=== PATIENT | male | born 1960 | race Caucasian/White ===

== ENCOUNTER 2019-12-21 15:42 | Outpatient (CLI) | payer MEDICARE, SELFPAY ==
--- NOTE | 2019-12-24 18:05 | ONC FU_ITS ---
Dr. Ennis Patient Follow-Up Note Patient: Yuniel Warren Unit #: [id number]: 1960 Dicatated By: Eddie Ennis M.D.Date of Visit:Dec 21, 2019 Onc Med Follow-up/Prog Note Chief Complaint: Laryngeal cancer. 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 He had presented with progressive hoarseness and dyspnea. 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 He underwent a debulking surgery on 11/09/2010. He also had findings consistent with primary hyperparathyroidism with elevated calcium and increased parathyroid hormone. He was first seen by Dr. Chiang on 11/22/2010 and required emergent tracheostomy placement. He required monthly IV biphosphonates for the control of his hypercalcemia. The definitive concurrent chemoradiation with cisplatin 100 mg/m??? was initiated on 01/01/2011. He was able to receive only 2 cycles of chemotherapy. The third cycle was canceled due to progressive hypercalcemia, bronchitis and severe hypertension. His radiotherapy was eventually completed on 02/21/2011. His treatment was complicated with progressive hearing loss, tinnitus, and intermittent hand paresthesias. After completion of his treatment, he underwent a parathyroidectomy. Restaging PET/CT on showed no evidence of metastatic disease. Surveillance CT neck on showed marked continued improvement in tumor. The patient continued with routine laryngoscopy evaluation by Dr. Vincenzo. He continued to see an family mediator for hypothyroidism and osteoporosis. 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 He was diagnosed with TERESA, planned for chronic CPAP therapy. For his depression he has seen Dr. Johnson. Repeat CT of the neck on 04/05/2014 continued to be without evidence of progression of disease. A follow-up CT of the neck and chest on 04/11/2015 was stable, without new lesions. His medical illnesses include hypertension, hyperparathyroidism, hypothyroidism, COPD, and obstructive sleep apnea. He has a prior history of smoking and alcohol use. He quit smoking in August 2014. INTERIM HISTORY: CT scan of the neck performed 04/03/2016 showed stable post radiation appearance of the supraglottic and glottic airway. There was mild soft tissue thickening noted, which had remained stable over several years. There was no neck lymphadenopathy noted. CT scan of the chest also performed on 04/03/2016 showed no metastatic disease or nodules within the lungs. There was also no mediastinal or hilar adenopathy. Surveillance CT scans of the neck and chest on 04/08/2017 showed no evidence of disease recurrence or progression. Soft tissue abnormality in the supraglottic and glottic larynx appeared stable, and a noncalcified 4-5 mm right upper lobe pulmonary nodule also appeared unchanged. I had seen him for a follow-up visit on 04/10/2017. His TSH level that time was slightly elevated, but he otherwise appeared stable clinically with no evidence of recurrence of the laryngeal cancer. At that point I had increased his thyroid replacement, but he otherwise just continued on observation/expectant management. He is seen for a scheduled visit. He was recently started on antibiotic therapy with Augmentin for sinus infection. He complains that he has been tired in the he has been sleeping a lot. He otherwise has been feeling okay. He is able to do some light work. His ECOG score is 1. Since his last visit, which was in August 2018, he has had a weight loss in the range of 30 pounds, but he says that he does eat. He does not complain of having difficulty swallowing. He has just occasional cough. He does not complain of shortness of breath or chest pain. He occasionally has nausea. He has no other GI or complaints. He has no significant joint or bone pain. He has had headache with his recent sinus infection. He occasionally has dizziness. He has no focal neurologic symptoms. Medications: AmLODIPine Besylate 1 (5 mg) Tablet Oral daily, Calcium 2 Tablet Oral daily, Cholecalciferol 1 (24384 Units) Tablet Oral q 7 days, FLUoxetine HCl 1 (20 mg) Tablet Oral daily, Krill Oil Capsule Oral, Levothroid 1 (100 mcg) Tablet Oral daily, Multivitamins 1 Capsule Oral daily, Omeprazole 1 (20 mg) Capsule Delayed Release Oral, Proventil HFA Aerosol, solution Inhalation PRN, Spironolactone 0.5 (25 mg) Tablet Oral daily Allergies: No Known Allergies. Review of Systems: Constitutional - He has been more tired and resting more than usual. He is able to do some very light work around the house. His appetite is good but his weight is down 30 pounds from last August. No fever, night sweats, or hot flashes. ECOG score is 2, ENMT - He has been taking Augmentin for sinus infection. No mouth sores. No sore throat or difficulty swallowing. He has a tracheostomy, Hematologic/Lymphatic - No abnormal bruising or bleeding, Respiratory - No shortness of breath. He has a cough. No pleuritic pain or hemoptysis, Cardiovascular - No angina pain. No palpitations, Gastrointestinal - He occasionally has nausea. No heartburn or acid reflux. No diarrhea or constipation. No blood in the stool or black stools, Genitourinary (M) - No dysuria or hematuria. No urinary frequency. No urgency or incontinence, Musculoskeletal - No joint or bone pain, Integumentary - He has a skin rash in the facial area, Neurologic - He has had sinus headache. He occasionally has dizziness. No numbness or tingling. No other focal neurologic symptoms, Psychiatric - No anxiety or depression. No insomnia. Vital Signs: Performed on Dec 21, 2019 14:34 Height - 69.00 in Weight - 209 lbs (LOW) BSA - 2.10 sq.m BMI - 30.86 (HIGH) Temperature - 98.2 F (LOW) Pulse - 95 /min Respiration - 16 /min BP - 128/82 mm(hg) O2 Sat - 99 % Pain - 0 Physical Examination: Constitutional - He looks pretty good generally, Eyes - Sclerae nonicteric.Conjunctivae clear, ENMT - Mouth is dry. There are no lesions noted in the oral cavity, Neck - There is induration in the neck. There is no mass noted. The tracheostomy site appears unremarkable, Hematologic/Lymphatic - No cervical, clavicular, or axillary adenopathy noted, Respiratory - Lungs show slightly coarse breath sounds bilaterally, Cardiovascular - Heart rhythm is regular. There is no murmur, gallop, or rub noted, Abdomen - Soft. Liver and spleen are not enlarged. There is no abdominal mass or ascites noted and there is no inguinal adenopathy, Extremities - No edema, Integumentary - There is patchy erythema in the facial area, mainly malar and perioral distribution. It appears consistent with seborrhea, Neurologic - No focal neurologic deficits noted. Lab/Imaging: Test performed on Oct 18, 2019 10:54 T4, Free 1.17 ng/dL TSH 3.37 uU/mL Glucose 406 mg/dL BUN 15 mg/dL Creatinine 0.74 mg/dL Cr Clearance (Est) 166.85 mL/min BUN/Creatinine Ratio 133 Absolute Value Sodium 133 mmol/L Potassium 4.3 mmol/L Chloride 98 mmol/L CO2 23 mmol/L Calcium 9.9 mg/dL Protein, Total 7.0 g/dL Albumin 4.1 g/dL Bilirubin, Total 0.3 mg/dL Alkaline Phosphatase 88 IU/L AST (SGOT) 18 IU/L ALT (SGPT) 17 IU/L WBC 6.0 10^9/L RBC 5.09 10^12/L HGB 15.0 g/dL HCT 43.5 % MCV 85.5 fl MCH 29.5 pg MCHC 34.5 g/dL RDW 13.0 % Platelet Count 307 10^9/L MPV 9.7 fL Neutrophils (Gran) 3.65 10^9/L Lymphocytes 1.54 10^9/L Monocytes 0.47 10^9/L Eosinophils 0.21 10^9/L Basophils 0.05 10^9/L Manual Lymphocytes 26 % Manual Monocytes 8 % Manual Eosinophils 4 % Manual Basophils 1 % Impression: 1. Patient with moderate to poorly differentiated invasive squamous cell carcinoma of the supraglottic larynx, by clinical evaluation stage III (T3, N0, M0). 2. He underwent debulking surgery on 11/09/2010. 3. During subsequent follow-up he required emergent tracheostomy and treatment for hypercalcemia. 4. He then underwent definitive chemoradiation. Radiation was completed on 02/21/2011 to a total dose of 7000 cGy. He received only 2 of 3 planned cycles of cisplatin. 5. He has since then been followed on observation/expectant management. He appeared to have complete response by follow-up PET/CT on 05/10/2011. His other medical illnesses include: 6. Hypertension. 7. Hyperparathyroidism. 8. Hypothyroidism. 9. COPD. 10. Obstructive sleep apnea. During follow-up he has continued to have somewhat marginal performance status, and since his visit in August 2018 he has had a significant weight loss, in the range of 30 pounds. There has been no evidence, though, of recurrence/progression of the laryngeal cancer. Plan: He remains on observation/expectant management. I will see him again in one year. Signed By: Eddie Ennis M.D. <<Signature on File>>
== END 2019-12-21 15:43 | disposition home or self-care (01) ==
LOC: ONCMED 15:42
PROVIDERS: Visit Provider Internal Medicine Medical Oncology
DX: C32.1 Malignant neoplasm of supraglottis (principal); R53.81 Other malaise; E21.3 Hyperparathyroidism, unspecified; E05.90 Thyrotoxicosis, unspecified without thyrotoxic crisis or storm; J44.9 Chronic obstructive pulmonary disease, unspecified; I10 Essential (primary) hypertension; G47.33 Obstructive sleep apnea (adult) (pediatric); E03.9 Hypothyroidism, unspecified; Z92.3 Personal history of irradiation; Z92.21 Personal history of antineoplastic chemotherapy; Z79.899 Other long term (current) drug therapy
CPT/HCPCS: G0463

== ENCOUNTER 2021-05-31 13:02 | Outpatient (CLI) | payer MEDICARE, SELFPAY ==
[2021-05-31 13:46] LABS: Basophils # 0.1 10^3/uL (0.0-0.1); Eosinophils # 0.2 10^3/uL (0.0-0.8); Eosinophils % 3.2 %; Hematocrit 45.2 % (42.0-52.0); Hemoglobin 14.7 g/dL (11.7-16.6); Lymphocytes # 1.1 10^3/uL (0.8-4.8); Lymphocytes % 15.9 %; Mean Corpuscular HGB Conc 32.5 g/dL (30.0-36.0); Mean Corpuscular Hemoglobin 29.2 pg (28.0-34.0); Mean Corpuscular Volume 89.9 fl (80-94); Mean Platelet Volume 8.9 fL (7.4-10.4); Monocytes # 0.5 10^3/uL (0.2-0.9); Monocytes % 6.6 %; Neutrophils # 4.99 10^3/uL (1.8-7.7); Neutrophils % 72.6 %; Nucleated Red Blood Cells % 0 %; Platelet Count 339 10^3/cmm (130-400); Red Blood Count 5.03 10^6/uL (4.1-5.3); Red Cell Distribution Width 13.4 % (12.1-15.1); White Blood Count 6.9 10^3/uL (4.0-10.0)
[2021-05-31 14:08] LABS: Alanine Aminotransferase 13 U/L (0-41); Albumin Level 4.8 g/dL (3.5-5.2); Alkaline Phosphatase 92 IU/L (40-130); Aspartate Amino Transferase 17 U/L (0-40); Blood Urea Nitrogen 21 mg/dL (6-20); Calcium 10.1 mg/dL (8.5-10.5); Carbon Dioxide 26 mmol/L (22-29); Chloride 101 mmol/L (98-107); Free T4 Free Thyroxine 0.93 ng/dL (0.82-1.77); Globulin 2.6 g/dL (1.3-4.6); Glomerular Filtration Rate 98.9 mL/min (90-130); Glucose 198 mg/dL (65-115); Osmolality Calculated 293 mOsm/kg (285-295); Sodium 137 mmol/L (136-145); Total Bilirubin 0.4 mg/dL (0.15-1.2); Total Protein 7.4 g/dL (6.6-8.7)
--- NOTE | 2021-05-31 17:47 | ONC FU_ITS ---
Dr. Ennis Patient Follow-Up Note Patient: Yuniel Warren Unit #: [id number]: 1960 Dicatated By: Eddie Ennis M.D.Date of Visit:May 31, 2021 Onc Med Follow-up/Prog Note Chief Complaint: Laryngeal cancer. 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 He had presented with progressive hoarseness and dyspnea. 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 He underwent a debulking surgery on 11/09/2010. He also had findings consistent with primary hyperparathyroidism with elevated calcium and increased parathyroid hormone. He was first seen by Dr. Chiang on 11/22/2010 and he required emergent tracheostomy placement. He required monthly IV biphosphonates for the control of his hypercalcemia. Definitive concurrent chemoradiation with cisplatin 100 mg/m??? was initiated on 01/01/2011. He was able to receive only 2 cycles of chemotherapy. The 3rd cycle was canceled due to progressive hypercalcemia, bronchitis and severe hypertension. His radiotherapy was eventually completed on 02/21/2011. His treatment was complicated with progressive hearing loss, tinnitus, and intermittent hand paresthesias. After completion of his treatment, he underwent a parathyroidectomy. Restaging PET/CT on showed no evidence of metastatic disease. Surveillance CT neck on showed marked continued improvement in tumor. The patient continued with routine laryngoscopy evaluation by Dr. Loya. He continued to see an electrical manufacturing technician for hypothyroidism and osteoporosis. Repeat CT of the neck on 04/05/2014 continued to be without evidence of progression of disease. A follow-up CT of the neck and chest on 04/11/2015 was stable, without new lesions. CT scan of the neck performed 04/03/2016 showed stable post radiation appearance of the supraglottic and glottic airway. There was mild soft tissue thickening noted, which had remained stable over several years. There was no neck lymphadenopathy noted. CT scan of the chest also performed on 04/03/2016 showed no metastatic disease or nodules within the lungs. There was also no mediastinal or hilar adenopathy. Surveillance CT scans of the neck and chest on 04/08/2017 showed no evidence of disease recurrence or progression. Soft tissue abnormality in the supraglottic and glottic larynx appeared stable, and a noncalcified 4-5 mm right upper lobe pulmonary nodule also appeared unchanged. I had seen him for a follow-up visit on 04/10/2017. His TSH level that time was slightly elevated, but he otherwise appeared stable clinically with no evidence of recurrence of the laryngeal cancer. At that point I had increased his thyroid replacement, but he otherwise just continued on observation/expectant management. His medical illnesses include hypertension, hyperparathyroidism, hypothyroidism, COPD, and obstructive sleep apnea. He has a prior history of smoking and alcohol use. He quit smoking in August 2014. INTERIM HISTORY: He was seen for a scheduled follow-up visit on 12/21/2019. He had experience of significant weight loss during the preceding year. However, by clinical evaluation there is no evidence of recurrence of the laryngeal cancer. He continued expectant management. He is seen for a follow-up visit. He has been feeling pretty good generally. He has been out doing some gardening and other light work. He also says that he rests and sleeps a lot. His ECOG score is 1. He had recently developed pain in his right rib cage associated with a minor injury, but he did feel his rib pop. It has been getting better. He has good appetite, and by our scale his weight is up 14 pounds since his last visit. He does not have fever or night sweats. He occasionally has choking when he is eating, but for the most part his swallowing is pretty good. He does not complain of cough. He does have some shortness of breath with activity. He has not been having chest pain. He has no GI/ complaints other than occasional nausea. He has no other joint or bone pain. He does not complain of headache. He occasionally has dizzy spells. He has no numbness/paresthesia or other focal neurologic symptoms. Subsequent to his last visit here he had stopped his thyroid supplement. Medications: AmLODIPine Besylate 1 (5 mg) Tablet Oral daily, Calcium 2 Tablet Oral daily, Cholecalciferol 1 (26452 Units) Tablet Oral q 7 days, Krill Oil Capsule Oral, Levothyroxine Sodium 1 Tablet (of 100 mcg) Oral daily, Multivitamins 1 Capsule Oral daily, Omeprazole 1 (20 mg) Capsule Delayed Release Oral, Proventil HFA Aerosol, solution Inhalation PRN, Spiriva HandiHaler 1 Inhalation (of 18 mcg) Capsule Inhalation daily, Spironolactone 0.5 (25 mg) Tablet Oral daily Allergies: No Known Allergies. Vital Signs: Performed on May 31, 2021 14:21 Height - 69.00 in BP - 156/100 mm(hg) (HIGH) Performed on May 31, 2021 14:21 Height - 69.00 in BP - 159/122 mm(hg) (HIGH) Performed on May 31, 2021 14:20 Height - 69.00 in Weight - 223.4 lbs (HIGH) BSA - 2.17 sq.m BMI - 32.99 (HIGH) Temperature - 98.1 F (LOW) Pulse - 101 /min (HIGH) Respiration - 18 /min BP - 161/112 mm(hg) (HIGH) O2 Sat - 98 % Pain - 5 Fatigue - 6 Physical Examination: Constitutional - He looks pretty good generally, Eyes - Sclerae nonicteric.Conjunctivae clear, ENMT - Mouth is dry. There are no lesions noted in the oral cavity, Neck - There is only mild induration in the neck. There is no mass noted. The tracheostomy site appears unremarkable, Hematologic/Lymphatic - No cervical, clavicular, or axillary adenopathy noted, Respiratory - Lungs sound clear at this time, Cardiovascular - Heart rhythm is regular. There is no murmur, gallop, or rub noted, Abdomen - Soft. Liver and spleen are not enlarged. There is no abdominal mass or ascites noted and there is no inguinal adenopathy, Extremities - No edema, Integumentary - There is patchy erythema in the facial area, mainly malar and perioral distribution. It appears consistent with seborrhea, Neurologic - No focal neurologic deficits noted. Lab/Imaging: Test performed on May 31, 2021 13:21 Sodium 137 mmol/L T4, Free 0.93 ng/dL TSH 6.60 uIU/mL Potassium 4.0 mmol/L Chloride 101 mmol/L CO2 26 mmol/L Anion Gap 14.0 BUN 21 mg/dL Creatinine 0.8 mg/dL Cr Clearance (Est) 142.50 mL/min eGFR 98.9 mL/min Glucose 198 mg/dL Osmolality - Calculated 293 mOsm/kg Calcium 10.1 mg/dL Protein, Total 7.4 g/dL Albumin 4.8 g/dL Globulin 2.6 g/dL Bilirubin, Total 0.4 mg/dL ALT (SGPT) 13 U/L AST (SGOT) 17 U/L Alkaline Phosphatase 92 IU/L WBC 6.9 10 3/uL RBC 5.03 10 6/uL HGB 14.7 g/dL HCT 45.2 % MCV 89.9 fl MCH 29.2 pg MCHC 32.5 g/dL RDW 13.4 % Platelet Count 339 10 3/cmm MPV 8.9 fL Neutrophils 4.99 10 3/uL Lymphocytes 1.1 10 3/uL Monocytes 0.5 10 3/uL Eosinophils 0.2 10 3/uL Basophils 0.1 10 3/uL Neutrophil % 72.6 % Lymphocyte % 15.9 % Monocyte % 6.6 % Eosinophil % 3.2 % Basophils % 1.0 % NRBC % 0 % Problem List: 1. Moderate to poorly differentiated invasive squamous cell carcinoma of the supraglottic larynx, by clinical evaluation stage III (T3, N0, M0). 2. Hypertension. 3. Hyperparathyroidism. 4. Hypothyroidism. 5. COPD. 6. Obstructive sleep apnea. Problems Addressed with this Encounter and Plan: Patient with moderate to poorly differentiated invasive squamous cell carcinoma of the supraglottic larynx, by clinical evaluation stage III (T3, N0, M0). He underwent debulking surgery on 11/09/2010. During subsequent follow-up he required emergent tracheostomy and treatment for hypercalcemia. On 01/01/2011 he began definitive concurrent utilizing a standard high-dose cisplatin regimen. Radiation was completed on 02/21/2011 to a total dose of 7000 cGy. He received only 2 of 3 planned cycles of cisplatin. He appeared to have complete response by follow-up PET/CT on 05/10/2011. He was then followed on observation/expectant management. During follow-up he continued to have somewhat marginal performance status, but as of April 2017 there was no evidence of recurrence of the laryngeal cancer by clinical evaluation or surveillance CT. As of his follow-up visit in December 2019, he had experienced a 30 pound weight loss. Since then he has shown some improvement clinically. By our scale his weight is back up 14 pounds. In the absence of any evidence of recurrence of the laryngeal cancer, he will continue on expectant management. As he is now more than 10 years out from completion of radiation, he will continue regular follow-up with his primary care provider, Joo Fitzpatrick. He also continues yearly ENT follow-up with Dr. Loya. I will see him again only as needed. Signed By: Eddie Ennis M.D. <<Signature on File>>
== END 2021-05-31 13:03 | disposition home or self-care (01) ==
LOC: ONCMED 13:09
PROVIDERS: Visit Provider Internal Medicine Medical Oncology
DX: Z08 Encounter for follow-up examination after completed treatment for malignant neoplasm (principal); Z85.21 Personal history of malignant neoplasm of larynx; I10 Essential (primary) hypertension; E21.3 Hyperparathyroidism, unspecified; E03.9 Hypothyroidism, unspecified; J44.9 Chronic obstructive pulmonary disease, unspecified; G47.33 Obstructive sleep apnea (adult) (pediatric); Z79.899 Other long term (current) drug therapy; Z92.21 Personal history of antineoplastic chemotherapy; Z92.3 Personal history of irradiation
CPT/HCPCS: 36415; 80053; 84439; 84443; 85025; 99214

== ENCOUNTER 2022-08-30 13:59 | Inpatient (IN) | payer MEDICARE, MEDICAID, SELFPAY ==
[2022-08-30] VITALS (32 sets, daily range): BP systolic 81–127; BP diastolic 50–89; PULSE 94–121; RESP 16–42; TEMP 37–37.1; O2SAT 89–97; BMI 33.0
--- NOTE | 2022-08-30 14:00 | ECG_ITS ---
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 Measurements Intervals [place] Rate: 107 P: 42 RI: 147 QRS: 5 QRSD: 119 T: -24 QT: 357 QTc: 477 Interpretive Statements SINUS TACHYCARDIA WITH OCCASIONAL SUPRAVENTRICULAR PREMATURE COMPLEXES LOW QRS VOLTAGE IN PRECORDIAL LEADS [QRS DEFLECTION < 1.0 mV IN CHEST LEADS] ST ELEVATION, CONSIDER ANTERIOR INJURY [MARKED ST ELEVATION W/O NORMALLY INFLECTED T-WAVE IN V2-V5] ACUTE CA INTERPRETATION BASED ON A DEFAULT AGE OF 40 YEARS No previous ECG available for comparison Electronically Signed On 09-03-2022 20:27:19 CDT by Kel Torres M.D. [email or web address]
--- NOTE | 2022-08-30 14:06 | XRR_ITS ---
PROCEDURE INFORMATION: Exam: XR Chest Exam date and time: 08/30/2022 3:05 PM Age: 61 years old Clinical indication: Chest wall pain; Additional info: Chest pain TECHNIQUE: Imaging protocol: Radiologic exam of the chest. Views: 1 view. COMPARISON: CT chest w con* [id number] 04/08/2017 10:48 AM FINDINGS: Tubes, catheters and devices: There is a tracheostomy tube in place with the tip at the level of the sternoclavicular joints. Lungs: Lungs are clear bilaterally. Pleural spaces: No pleural effusion. No pneumothorax. Heart/Mediastinum: Stable mild enlargement of the cardiac silhouette. Mediastinal contours are unremarkable. Vasculature: Stable vascular calcifications in the aorta. Bones/joints: Unremarkable for age. XR/XR chest 1V portable [id number] IMPRESSION: 1. No acute cardiopulmonary process. 2. There is a tracheostomy tube in place with the tip at the level of the sternoclavicular joints. 3. Incidental/nonacute findings are listed in the report.
[2022-08-30] MEDS: heparin 5,000 unit/mL INJ 1 mL 4000 UNIT IVP (14:08)
[2022-08-30] MEDS: clopidogrel 300 mg Tablet 600 MG PO (14:09)
--- NOTE | 2022-08-30 14:09 | XACV_ITS ---
Exam Room: ED.ROOM10 Ht: 178 cm Wt: 104 kg BSA: 2.30 m2 Gender: Male : 1960 Any Known Allergies: No known allergies Exam Priority: Routine Procedure(s): Procedure Description: Diagnostic procedure Procedure Description: PCI procedure Procedure Description: Left Heart Catheterization Procedure Description: PTCA Procedure Description: Miscellaneous Procedure Description: ACT Procedure Description: Coronary Angiography Diagnostic Cath Status: Emergency Diagnostic Findings * INDICATION: 71 year old man presented with 12-24 hours of indigestion and chest pain that has gotten better. However EKG is showing q waves with ST elevation in inferior leads. laborer activated for ST elevation AK. * Proximal Right Coronary Artery: total thrombotic occlusion, ALEJANDRO:0 flow. * Left Anterior Descending has mild luminal irregularities. * Left Main has no disease. * Circumflex has no disease. * Coronary angiography shows left dominance. PCI Status: Emergency PCI Indication: STEMI - Stable (<= 12 hrs Sx) Interventional Findings * Procedure Detail: We engaged RCA with JR4 guide catheter. IV heparin was administered to maintain anticoagulation. 0.014 run-through guidewire was used to cross the totally occluded vessel. With some difficulty we were able to cross it. Balloon angioplasty was performed with 2.5 x 12 mm semicompliant balloon.No flow was restored. We then performed diagnostic angiography of left system. This showed large left system. We then engaged RCA with AL 0.75 guide catheter. Occluded segement was crossed again with run-through wire. We performed several inflations of 2.5 x 12 mm semicompliant balloon. This restored flow and showed a high thrombus burden and a small sized vessel. At this time patient denied any chest pain. His labs came back and initial troponin was over 2400. Given small size of RCA,resolution of chest pain and late presentation of ST elevation AK confirmed with higher troponin level, we decided not to put stent in. Patient left the irrigation laborer in a stable condition. . * Proximal Right Coronary Artery: 100% stenosis treated with a AB TREK 2.50X12 RX BALLOON. 0% residual stenosis, ALEJANDRO: 3 flow. Conclusions 1. Total thrombotic occlusion of 2. small sized RCA 3. . This is culprit vessel for 4. ST elevation AK. 5. Balloon angioplasty was performed. However given small size of vessel, resolution of symptoms and late presentation of STEMI 6. we decided to not use 7. stent it. . 8. Proximal Right Coronary Artery was treated with a Balloon. Recommendations * Transfer to Cardiac step down unit. * Dual antiplatelet therapy for atleast 1 year. * High intensity statin therapy. * Outpatient cardiology follow up in 2-4 weeks. * Will resume anticoagulation for 48 hours after hemostasis is achieved for access site. Interventional RX Recommendation: PCI w/o planned CABG Diagnostic RX Recommendation: PCI w/o planned CABG Anticoagulation: Heparin Pressures Phase:Rest AO : 73 / 66 ( 71 ) @ 3:32:00 PM 93 / 80 ( 87 ) @ 3:38:00 PM 98 / 85 ( 92 ) @ 3:40:00 PM 116 / 76 ( 93 ) @ 3:43:00 PM 115 / 76 ( 91 ) @ 3:43:00 PM 112 / 99 ( 107 ) @ 3:50:00 PM LV : 141 / -9 / 7 @ 3:42:00 PM 144 / -9 / 8 @ 3:43:00 PM Valves Phase:DefaultPhase AV : 0.0 @ 3:04:25 PM 0.0 @ 3:04:25 PM AV Mean Gradient: 0.0 @ 3:04:25 PM 0.0 @ 3:04:25 PM Clinical Evaluation EBL: 5mL-10mL Procedural Details Procedure Consent Obtained. Pre-Procedure Time Out. Identified patient by full name and date of as verbalized by the patient/guarantor. Does the consent match the physician's order: N/A Emergent. Accurate & Complete Informed Consent: N/A Emergent. Inpatient/Outpatient History & Physical on Chart: N/A Emergent. If H&P is completed, is and addenduem needed: N/A Emergent; If yes, is the addendum complete: N/A Emergent. Visualize and Verify Site with Patient/Guarantor: N/A. Relevant Radiology Images available: N/A Emergent. Pre-op teaching completed and patient verbalized understanding. The risks, benefits, and alternatives of sedation and/or procedure were discussed by physician. The patient agrees to continue. Procedure started. [facility] Clinical Fraility Score: 3: Managing Well. Global President Indications: ACS <= 24 hours. Chest Pain Symptom Assessment: Typical Angina Symptoms. Current Diagnosis : STEMI. Correct patient, site and procedure confirmed by cath team. Current diagnosis: STEMI. PERRLA. Strong, equal hand product sales representative bilaterally. Lungs clear x 5 lobes. IV Site on Arrival: 20 gauge in the left anticubital. IV Site on Arrival: 20 gauge in the left hand. IV Fluids: 0.9% NaCl at KVO. 0 mL infused prior to irrigation laborer. Pre Procedural Pulses: bilateral dorsalis pedis was 2+. Pre Procedural Pulses: right radial was 2+. Oxygen started at 2liters/min via nasal canula. right groin was prepped with chloroprep then draped in the usual sterile fashion. right radial was prepped with chloroprep then draped in the usual sterile fashion. Physician notified. Baseline sample Acquired. HR: 114 BPM. Physician arrived. Physician scrubbed in. Immediate Pre-Procedure Time Out. Correct Patient: Yes; Correct Procedure: Yes; Correct Site: Yes; Correct Patient Position: Yes; Correct Supplies: Yes; Dried Flammable Prep: Yes; Blood Products Available: N/A;. Lidocaine 1% infiltrated to the right radial. Arterial access obtained. 6 austrian JR 4 guide catheter was inserted over the wire. Runthrough guidewire was advanced through the guide catheter to lesion in the prox RCA. Delay in PCI related to difficult anatomy. Multiple views taken of right coronary artery. Runthrough guidewire was advanced through the guide catheter to lesion in the prox RCA. Inflation number : 1 A AB TREK 2.50X12 RX BALLOON was prepped and advanced across the Prox RCA , then inflated to 4 SANJEEV for 0:11 seconds. AP pads applied to patient chest. Balloon inserted to lesion in the prox RCA. Balloon and wire out. Guide catheter out. A 5 austrian TIG catheter in over wire. Multiple views taken of left coronary artery. Florence catheter advanced across the ventricle. EDP Sample taken: LV 141/-10,7; HR: 105 BPM; SpO2: 97%. Pullback taken: LV 144/-10,8; AO 116/76(93); Mean: 0mmHg, Peak to Peak: 0mmHg, SEP: 18sec/min; HR: 113 BPM; SpO2: 96%. Catheter removed over the exchange wire. 6 austrian AL 0.75 guide catheter was inserted over the wire. Runthrough guidewire was advanced through the guide catheter to lesion in the prox RCA. Inflation number: 2 The AB TREK 2.50X12 RX BALLOON was reinflated across the Prox RCA, to 6 SANJEEV for 0:12 seconds. Balloon inserted to lesion in the prox RCA. Inflation number: 3 The AB TREK 2.50X12 RX BALLOON was reinflated across the Prox RCA, to 8 SANJEEV for 0:12 seconds. Inflation number: 4 The AB TREK 2.50X12 RX BALLOON was reinflated across the Prox RCA, to 8 SANJEEV for 0:07 seconds. Results checked. Inflation number: 5 The AB TREK 2.50X12 RX BALLOON was reinflated across the Prox RCA, to 10 SANJEEV for 0:12 seconds. Inflation number: 6 The AB TREK 2.50X12 RX BALLOON was reinflated across the Prox RCA, to 10 SANJEEV for 0:14 seconds. Results checked. Balloon and wire out. Guide catheter out. A TR Band was successful obtaining hemostatsis at the Right Radial artery insertion site. Post Procedure: Pulses reassessed and unchanged. PERRLA. Strong, equal hand product sales representative bilaterally. No VTE prophylaxis required. Medication's Wasted: Heparin = 1000 u. Medication's Wasted: Nitro = 49.8 mg. Medication's Wasted: Other = Versed 1 mg. Medication's Wasted: Other = Fentanyl 50 mcg. Medication's Wasted: Lidocaine 1% = 2 mL. Post-op diagnosis: Totally occluded non dominant RCA post balloon dilation. Complications: none. Estimated blood loss: 5mL-10mL. Responsiveness - Normal response to verbal stimuli; alert and oriented, PERRLA. Airway - Unaffected, no intervention required; spontaneous ventilation. Circulation: W/N/L, pulses unchanged. Nausea/Vomiting: No. Total IV fluids: 47 mL. Procedure completed. ACT drawn. Results 259 seconds. Therapeutic limits - pre-heparin administration 90-150 seconds and monitoring heparin during a vascular procedure >250 seconds. Patient transferred by wheelchair to CPRU. PCI Indication: STEMI. Vital chart was stopped. Access Site Site: Right Radial artery Sheath Size: 6 Fr Hemostasis Method: TR Band Hemostasis Success: Successful Procedure Medications Start: 2:20 PM Stop: 2:20 PM Medication: Versed Amount: 1 mg Route: I.V. Start: 2:20 PM Stop: 2:20 PM Medication: Fentanyl Amount: 50 mcg Start: 2:24 PM Stop: 2:24 PM Medication: Nitrogylcerin Amount: 200 mcg Route: I.A. Start: 2:26 PM Stop: 2:26 PM Medication: Heparin Amount: 5000 units Route: I.V. I, the attending physician, have reviewed and verified all procedure medications. Yes, all medications given per verbal order History/Risk Factors Hypertension: No Dyslipidemia: No Peripheral Arterial Disease (PAD): No Myocardial Infarction (AK): No Obesity: No Renal Disease: No Prior Interventions PCI: No CABG: No Valve Surgery: No Report Signatures Finalized by Kel Torres MD on 08/31/2022 10:43 AM
--- NOTE | 2022-08-30 14:09 | W.ED.CHESTPA ---
HPI - Chest Pain General: Chief Complaint: Chest Pain Stated Complaint: stemi Time Seen by Provider: 08/30/22 14:05 History of Present Illness: Patient presents to the ER with complaints of chest pain,/STEMI alert from EMS. Patient stated he started having indigestion approximately 4 AM this morning and normally does not have indigestion. Patient tried eating and drinking and just did not go away. Patient eventually called EMS. When they got there he is having ST elevation on the EKG. Was brought here. EMS gave patient 324 mg aspirin and 1 nitro on route. Patient is totally pain-free at this moment. Patient has no cardiac history has never had a KY/stent/surgery of cardiac nature. Patient is not currently on any anticoagulation. 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 Stemi alert was called Recruitment Officer personnel and Dr. Choudhury evaluated patient in the room patient will be taken straight to the Recruitment Officer. Review of Systems General: Reports: 10 or more systems reviewed and unremarkable except in HPI and below Physical Exam Const: COMMON NORMALS: no acute distress, average body habitus, patient oriented x3, no limitations, healthy appearing, alert and well nourished HENMT: COMMON NORMALS: normocephalic, atraumatic, hearing grossly normal bilaterally, external ears normal, Normal external nose present and moist oral mucous membranes HEAD & SCALP: normocephalic and atraumatic NOSE: Normal external nose present EXTERNAL EAR: Yes external ears normal OTHER: Tracheostomy in place Eye: COMMON NORMALS: Equal, round and reactive pupils present, EOMs intact bilaterally, conjunctivae normal and no scleral icterus CONJUNCTIVA: Yes conjunctivae normal PUPIL: Yes Equal, round and reactive pupils present Neck/C-Spine: COMMON NORMALS: no JVD Chest: COMMONS NORMALS: normal inspection of the chest and normal palpation of entire chest wall Resp: COMMON NORMALS: normal respiratory effort, No retractions, No use of accessory muscles and clear to auscultation bilaterally AUSCULTATION: clear to auscultation bilaterally Cardio: COMMON NORMALS: no JVD, regular rate, regular rhythm, S1 normal heart sound present, S2 normal heart sound present, No gallops present (Cardio), No clicks present (Cardio), No murmurs present (Cardio) and No rub (Cardio) RATE: regular rate RHYTHM: regular rhythm HEART SOUNDS: S1 normal heart sound present and S2 normal heart sound present GI: COMMON NORMALS: Normal to inspection, nondistended, normoactive bowel sounds present, Soft to palpation, non-tender, No hepatosplenomegaly present and no masses PALPATION: Yes Soft to palpation and Yes No hepatosplenomegaly present : COMMON NORMALS: Yes no CVA tenderness BLADDER/KIDNEY EXAM: Yes no CVA tenderness Back/Pelvis: COMMON NORMALS: no CVA tenderness Extremity: NARRATIVE EXTREMITY EXAM: Normal negative edema Neuro: COMMON NORMALS: patient oriented x3 SENSORIUM/ORIENTATION: Yes alert MDM - Chest Pain Medical Decision Making Patient arrived via EMS for STEMI alert. Twelve-lead EKG did show STEMI with ST elevation in V2 through 5, with posterior extension. And 2 3 and aVF. Patient was given 600 mg Plavix oral and 4000 units of heparin IV. Dr. Choudhury took patient to the Recruitment Officer. EKG Data EKG 1: I personally reviewed and interpreted this EKG as follows: EKG interpretation date: 08/30/22 EKG interpretation time: 14:02 Prior EKG tracings: not available for review Interpretation: EKG showed ventricular rate 107 beats a minute, UT interval 147, QRS duration 119, QTc of 420, sinus tach with occasional PVC, inferior KY probably recent, ST elevation consider anterior KY, acute KY Critical Care Time Critical Care Time: Critical Care Time: Yes Total Critical Care Time: 20 Attestation: The high probability of a clinically significant, sudden or life threatening deterioration of the patient's [cardio vascular] system(s) required my full and direct attention, intervention and personal management. The critical care time is as shown. This time is in addition to time spent performing any reported procedures but includes the following: [x] Data and vital sign review and interpretation [x] Patient assessment, examination and intervention [x] Documentation [x] Medication orders and management Discharge Plan Discharge Clinical Impression: ST elevation (STEMI) myocardial infarction Condition: Stable Prescriptions: No Action levothyroxine 100 mcg tablet 100 mcg PO DAILY Qty: 90 3RF Coding Level of Care Code ED Justice Court Deputy Clerk for Shani Layne
--- NOTE | 2022-08-30 14:15 | P.HP_ITS ---
Providers/Chief Complaint Chief Complaint: stemi History of Present Illness Yuniel Warren is a 61 year old male with past medical history of laryngeal cancer and no prior significant disease was CAD was brought to hospital with indigestion and chest pain on and off since 4 AM. He called EMS as chest pain was not resolving. EMS similar EKG showed ST elevation in inferior leads. Cardiac Leak Gang Supervisor was emergently activated and patient brought to the Leak Gang Supervisor Review of Systems General: Reports: 10 or more systems reviewed and unremarkable except in HPI and below Narrative: CONSTITUTIONAL: No fever chills weight loss or gain or night sweats. [] HEENT: Normocephalic, atraumatic.[] RESPIRATORY: No cough, sputum, hemoptysis or wheezing.[] CARDIOVASCULAR: Has chest pain GI: no nausea vomiting diarrhea. [] COMPUTER FORENSIC EXAMINER: No numbness, tingling, weakness or loss of function in any part of the body. [] MUSCULOSKELETAL: No knee or joint pain or rashes. [] Medications/Allergies Home Medications Medication Instructions Recorded Confirmed Last Taken Type levothyroxine 100 mcg tablet 100 mcg PO DAILY #90 tabs 07/16/21 Unknown Rx Allergies Allergy/AdvReac Type Severity Reaction Status Date / Time No Known Allergies Allergy Verified 07/16/21 16:18 Vitals/I&O/Wt Weight last 48 hrs Weight 230 lb Physical Exam Narrative: GENERAL: Patient is alert, awake and oriented x3. [] NECK: No jugular vein distension. [] HEENT: No cyanosis. No icterus. No pallor. [] HEART: Regular S1 and S2. No murmur, rub or gallop. [] LUNGS: Clear to auscultate bilaterally. [] CENTRAL NERVOUS SYSTEM: Grossly nonfocal. [] EXTREMITIES: Lower extremities with no edema] A&P Assessment and plan (1) ST elevation (STEMI) myocardial infarction: Qualifiers: Involved coronary artery: unspecified coronary artery Qualified Code(s): I21.3 - ST elevation (STEMI) myocardial infarction of unspecified site Plan Patient has presented with acute ST elevation NV and brought emergently to cardiac Leak Gang Supervisor. We will perform coronary angiogram with possible PCI. Aspirin, Plavix and heparin bolus given. We will order echocardiogram. Transfer to cardiac stepdown unit post procedure. Attestations Medical Necessity Statement*: Care expected to cross 2 midnights. Patient has preseted with acute ST elevation NV and emerently brought to lab support service tech for angiogram Coding Level of Care Code Acute Code for Floydg Xi Diagnoses ST elevation (STEMI) myocardial infarction I21.3 Involved coronary artery: unspecified coronary artery
[2022-08-30 14:17] LABS: Glucose Point of Care 555 mg/dL (70-110)
[2022-08-30 14:39] LABS: Basophils # 0.1 10^3/uL (0.0-0.1); Basophils % 0.5 %; Eosinophils % 0.3 %; Hematocrit 47.1 % (42.0-52.0); Hemoglobin 15.4 g/dL (11.7-16.6); Lymphocytes # 1.2 10^3/uL (0.8-4.8); Lymphocytes % 8.6 %; Mean Corpuscular HGB Conc 32.7 g/dL (30.0-36.0); Mean Corpuscular Hemoglobin 28.8 pg (28.0-34.0); Mean Platelet Volume 9.9 fL (7.4-10.4); Monocytes % 7.7 %; Neutrophils # 10.98 10^3/uL (1.8-7.7); Neutrophils % 82.4 %; Nucleated Red Blood Cells % 0 %; Platelet Count 276 10^3/cmm (130-400); Red Blood Count 5.35 10^6/uL (4.1-5.3); Red Cell Distribution Width 13.1 % (12.1-15.1); White Blood Count 13.3 10^3/uL (4.0-10.0)
[2022-08-30 14:44] LABS: INR 0.94 (0.8-1.2)
[2022-08-30 14:52] LABS: Alanine Aminotransferase 38 U/L (0-41); Alkaline Phosphatase 117 U/L (40-130); Anion Gap 18.2 (5-19); Aspartate Amino Transferase 85 U/L (0-40); Blood Urea Nitrogen 16 mg/dL (8-23); Calcium 9.5 mg/dL (8.5-10.5); Carbon Dioxide 23 mmol/L (22-29); Chloride 90 mmol/L (98-107); Creatinine Clr Calc Pharmacy 95.0338; Globulin 3.3 g/dL (1.3-4.6); Glomerular Filtration Rate 76.2 mL/min (90-130); Glucose 484 mg/dL (65-115); Osmolality Calculated 287 mOsm/kg (285-295); Potassium 4.2 mmol/L (3.5-5.1); Sodium 127 mmol/L (136-145); Total Bilirubin 1.1 mg/dL (0.15-1.2); Total Protein 7.3 g/dL (6.6-8.7)
[2022-08-30 14:53] LABS: Troponin(5th) Baseline 2429 ng/L (0-15)
[2022-08-30 14:56] LABS: NT Pro B Type Natriuretic Pept 1533 pg/mL (0-125)
--- NOTE | 2022-08-30 15:10 | USCV_ITS ---
Yuniel Warren Age: 61 Gender: M : 1960 Exam Date: 08/30/2022 20:48 Ordering Phys: Kel Torres M.D ([email or web address]) Technologist: BLESSING Exam Location: [facility] [place] Indication: chest pain BP: / HR: 107 Rhythm: Sinus Technical Quality: Adequate MEASUREMENTS (Male / Female) Normal Values 2D ECHO LV Diastolic Diameter PLAX 5.0 cm 4.2 - 5.9 / 3.9 - 5.3 cm LV Systolic Diameter PLAX 4.6 cm IVS Diastolic Thickness 0.9 cm 0.6 - 1.0 / 0.6 - 0.9 cm IVS Systolic Thickness 0.9 cm LVPW Diastolic Thickness 1.0 cm 0.6 - 1.0 / 0.6 - 0.9 cm LVPW Systolic Thickness 1.0 cm LVOT Diameter 2.6 cm LV Ejection Fraction 2D Teich 17.5 % LV Ejection Fraction MOD 2C 57.9 % LV Ejection Fraction 2C AL 56.4 % LA Diameter 3.0 cm M-MODE Aortic Annulus Diameter 3.3 cm LA Ao Ratio MM 1.0 MV E Point Septal Separation 0.7 cm DOPPLER AV Peak Velocity 107.0 cm/s LVOT Peak Velocity 80.0 cm/s AV Area Cont Eq vti 3.5 cm squared AV Area Cont Eq pk 3.9 cm squared MV Area PHT 4.5 cm squared Mitral E to A Ratio 0.9 MV E' Velocity 33.5 cm/s Mitral E to MV E' Ratio 12.0 Mitral E to LV E' Lateral Ratio 11.3 Mitral E to LV E' Septal Ratio 13.0 TR Peak Velocity 136.0 cm/s TR Peak Gradient 7.4 mmHg TV Peak E Velocity 41.0 cm/s PV Peak Velocity 74.0 cm/s FINDINGS Left Ventricle Left ventricle is normal in size. LV systolic function is normal with EF of 55 to 60%. No regional wall motion abnormalities are seen. Grade 1 diastolic dysfunction Right Ventricle Normal in size and function Right Atrium Normal in size Left Atrium Normal in size Mitral Valve Moderate mitral annular calcification is seen Aortic Valve Aortic valve is thickened and calcified. No significant stenosis or regurgitation. Tricuspid Valve Mild tricuspid regurgitation. Insufficient TR jet to calculate RVSP Pulmonic Valve Not well visualized Pericardium Normal Aorta Aortic root is mildly dilated IVC Not well visualized CONCLUSIONS LV systolic function is normal with EF of 55 to 60%. Grade 1 diastolic dysfunction Mild tricuspid regurgitation. Compared to prior echocardiogram from 2013, no significant changes are seen Kel Torres MD (Electronically Signed) Final Date: 31 August 2022 13:19 S
[2022-08-30] MEDS: sodium chloride 0.9% 1,000 ML 100 ML IV (15:15)
--- NOTE | 2022-08-30 15:24 | PC.NURSE ---
received from cardiac dock or pier laborer s/p stemi alert ..at 1515.report received.pt is alert and awake and oriented x 4.asking for something to eat.denies pain.sr with st elevation present on monitor.rere [address]...on room air with good o2 sats noted.pt is able to speak.right wrist with tr band on and inflated.right hand is warm to touch and with brisk capillary refill.no hematoma noted.palpable radial pulse noted distal to tr band.pt instructed in activity restrictions s/p radial artery procedure...and instructed to notify staff for any bleeding,pain,sob,numbness,or for any concerns at all.pt verb understanding of instructions
--- NOTE | 2022-08-30 16:39 | ECG_ITS ---
[facility] Test Date: 2022-08-30 Pat Name: Yuniel Warren Department: Room: 104 Gender: Male Associate Web Developer: : 1960 Requested By: Ricardo Gonsalez Order Number: [id number] Luke MD: Kel Torres M.D. Measurements Intervals [place] Rate: 97 P: 53 NE: 156 QRS: -3 QRSD: 94 T: -24 QT: 357 QTc: 455 Interpretive Statements SINUS RHYTHM POSSIBLE LEFT ATRIAL ENLARGEMENT [-0.1mV P-WAVE IN V1/V2] INDETERMINATE AXIS LOW QRS VOLTAGE IN PRECORDIAL LEADS [QRS DEFLECTION < 1.0 mV IN CHEST LEADS] POSSIBLE RIGHT VENTRICULAR CONDUCTION DELAY [RSR (QR) IN V1/V2] ST ELEVATION, CONSIDER ANTERIOR INJURY [MARKED ST ELEVATION W/O NORMALLY INFLECTED T-WAVE IN V2-V5] ACUTE FL No previous ECG available for comparison Electronically Signed On 08-31-2022 6:04:00 CDT by Kel Torres M.D. [id number]
[2022-08-30 17:10] LABS: Troponin 5 2HR 2195 ng/L (0-15)
[2022-08-30 17:37] LABS: Glucose Point of Care 477 mg/dL (70-110)
[2022-08-30] MEDS: insulin lispro 100 unit/1 mL SUBCUT ×2 (17:49→22:13)
--- NOTE | 2022-08-30 18:20 | PM.CONSULT ---
Providers/Reason For Consult Consulting Physician/Specialty*: Radha Tan MD/ Hospitalist Reason for Consult*: medical comorbidity management Requesting Physician: Dr. Torres Attending Physician: Kel Torres M.D Primary Care Provider: Maeve Farias MD History of Present Illness History of Present Illness Yuniel Warren is a 61 year old male with a past medical history of diabetes mellitus, hypothyroidism, dyslipidemia, hypertension, laryngeal CA, presented to the hospital today with STEMI for which he underwent angiogram where he was found to have RCA lesions status postangioplasty today. His blood sugar since admission has been ranging between [phone], medicine service is consulted for hyperglycemia management. Patient reports having had diabetes for many years, his A1c at diagnosis was at 15, states that with metformin and lifestyle modification his last A1c came down to 5.2. However he has not taken any medication in over a month. He states that his telephone number changed and it is likely that the pharmacy try to reach him at his old number. He has been out of nearly all his medications. He does not remember the name of his antihypertensives at this time. He was also told that he has cholesterol problems but it is my understanding he has not been on any statin so far. We will attempt to get a list of his most recent medications from [facility] in [place] tomorrow morning. Review of Systems General: Reports: 10 or more systems reviewed and unremarkable except in HPI and below Const: Denies: fever(s), chills or body aches Eyes: Denies: change in vision, blurry vision or photophobia ENMT: Reports: hoarseness; Denies: throat pain, enlarged tonsils, odynophagia or nasal congestion Card: Denies: chest pain, palpitations, irregular heart rhythm, edema, swelling of feet/ankles, lightheadedness, pre-syncope, dyspnea on exertion or orthopnea Resp: Denies: dyspnea, productive cough, non-productive cough, wheezing, stridor, pain on inspiration, change in phlegm color, hemoptysis or chest congestion GI: Denies: abdominal pain, nausea, vomiting, hematemesis, coffee ground emesis, dysphagia, heartburn, diarrhea, constipation, GI cramping, change in stool character, hematochezia or melena : Denies: flank pain, dysuria, urinary frequency, urinary urgency, urinary hesitancy or hematuria Musc: Denies: neck pain, back pain, extremity pain, joint swelling, joint warmth or deformity Neuro: Denies: headache(s), numbness in extremities, weakness in extremities, sensory changes, difficulty walking, frequent falls, dizziness, vertigo, behavioral changes, Slurred speech present or seizure-like activity Psych: Denies: anxiety, depression, suicidal ideation or homicidal ideation Endo: Denies: polyuria, polydipsia, tired all the time, cold intolerance or hot flashes Will/Lymph: Denies: easy bruising or easy bleeding Medications/Allergies Home Medications Medication Instructions Recorded Confirmed Last Taken Type levothyroxine 100 mcg tablet 100 mcg PO DAILY #90 tabs 07/16/21 Unknown Rx Allergies Allergy/AdvReac Type Severity Reaction Status Date / Time No Known Allergies Allergy Verified 07/16/21 16:18 Current Medications Generic Name Dose Route Start Last Admin Trade Name Freq PRN Reason Stop Dose Admin Insulin Human Lispro 0 unit 08/30/22 18:00 08/30/22 17:49 Insulin Lispro 100 Unit/1 Ml SUBCUT 16 unit WM&BEDTIME IRON Administration Protocol PFSH Acute PFSH: Medical History Diabetes Hypertension Hypothyroid Vitals/I&O/Wt Last Vital Signs Temp 98.7 F 08/30/22 15:45 Pulse 110 H 08/30/22 16:43 Resp 16 08/30/22 16:43 BP 113/69 08/30/22 15:45 Pulse Ox 97 08/30/22 16:43 O2 Del Method Room Air 08/30/22 16:43 08/30/22 08/30/22 08/30/22 06:59 14:59 22:59 Output Total 450 / 450 Balance -450 / -450 Weight last 48 hrs Weight 104.326 kg Physical Exam Narrative: General: No acute distress, AO x3 HEENT: PERRLA, pupils bilaterally equal and reactive, pallors not present Chest: Normal vesicular breath sounds, no added sounds, equal good air entry bilaterally CVS: S1-S2 regular, no murmurs, no tachycardia, no gallops, no rubs Abdomen: Soft, nontender, no organomegaly, bowel sounds present Neuro: No focal deficits, no facial deformity, AO x3, power 5/5 in all limbs Data 08/30/22 14:20 08/30/22 14:20 A&P Assessment and plan (1) ST elevation (STEMI) myocardial infarction: Management per cardiology Currently on aspirin Plavix status post intervention Qualifiers: Involved coronary artery: unspecified coronary artery Qualified Code(s): I21.3 - ST elevation (STEMI) myocardial infarction of unspecified site (2) Diabetes: Diabetes mellitus with uncontrolled hyperglycemia Blood sugar currently ranging between 4 70-5 55 He has been starting on medium dose insulin sliding scale and has received 16 units of subcutaneous lispro We will give additional 5 units of insulin regular IV push now, recheck blood sugar in 1 hour. No anion gap, no current signs of DKA Previous A1c 5.2 per patient. Will check stat A1c now. Likely that uncontrolled blood sugars are related to noncompliance with medications over the past month (3) Hypertension: Has not taken his medications in over a month. We will obtain a list of his medications (4) Hypothyroid: Will confirm dose of levothyroxine with pharmacy in the morning Check TSH Coding Level of Care Code Acute Code for Chg Fwd Diagnoses ST elevation (STEMI) myocardial infarction I21.3 Involved coronary artery: unspecified coronary artery Diabetes E11.9 Hypertension I10 Hypothyroid E03.9
[2022-08-30] MEDS: acetaminophen 325 mg Tablet 650 MG PO (18:33)
[2022-08-30] MEDS: nitroglycerin 1 gm/inch oint Pkt 1 INCH TOPICAL (18:33)
--- NOTE | 2022-08-30 19:14 | PC.NURSE ---
pt c/o substernal chest pain rating 5/[address] stewart notified.he ordered ntg past 1 inch q6h...and if cp not relieved...start ntg drip.chest pain relieved completely by 1900.
[2022-08-30 19:23] LABS: Chol HDL Ratio 4.05 mg/dL (1.0-5.00); Cholesterol 166 mg/dL (0-200); HDL Cholesterol 41 mg/dL (60-100); LDL Cholesterol Calculated 101 mg/dL (50-129); LDL HDL Ratio 2.46 RATIO (0.00-3.22); Thyroid Stimulating Hormone 2.75 uIU/mL (0.27-4.20); Triglycerides 120 mg/dL (0-150)
--- NOTE | 2022-08-30 19:23 | PC.NURSE ---
tr band slowly deflated and eventually removed at 1910.site dressed with 2x2 gauze and secured with biocclusive drsg.no hematoma formation noted.palpable radial pulse noted.right hand remains warm to toucha nd with brisk capillary refill.pt instructed to notify staff for any bleeding,pain,numbness..or for any concern at all.pt verb understanding of instructions
[2022-08-30] MEDS: insulin regular-human 5 UNIT in SYRINGE 1 EACH 999 UNIT IVP (19:43)
--- NOTE | 2022-08-30 20:06 | ECG_ITS ---
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 Measurements Intervals [place] Rate: 109 P: 62 AL: 155 QRS: 22 QRSD: 93 T: -16 QT: 327 QTc: 442 Interpretive Statements SINUS TACHYCARDIA WITH OCCASIONAL SUPRAVENTRICULAR PREMATURE COMPLEXES POSSIBLE LEFT ATRIAL ENLARGEMENT [-0.1mV P-WAVE IN V1/V2] LOW QRS VOLTAGE IN PRECORDIAL LEADS [QRS DEFLECTION < 1.0 mV IN CHEST LEADS] ACUTE MD Compared to ECG 08/30/2022 16:39:08 Sinus rhythm no longer present Indeterminate axis no longer present ST (T wave) deviation no longer present Myocardial infarct finding no longer present Electronically Signed On 08-31-2022 6:01:27 CDT by Kel Torres M.D. [id number]
[2022-08-30 20:12] LABS: Estmated Average Glucose 286; Hemoglobin A1C 11.6 % (4.0-6.0)
[2022-08-30 20:49] LABS: Glucose Point of Care 384 mg/dL (70-110)
--- NOTE | 2022-08-30 21:33 | PC.NURSE ---
2029: Bedside monitor alerted RN to cuff BP of 81/50. Patient assessed. Patient c/o being tired, but oriented. Denied chest pain. BP retaken, slight improvement noted (91/50). 2099: Bedside monitor indicates cuff BP of 88/74. Patient re-assessed. No change in mental status, continues to deny chest pain. Nitropaste removed from left chest. Accucheck obtained. 2114: BP= 98/62 Hospitalist notified of hypotension, assessments, and latest accucheck results. Orders received.
[2022-08-30] MEDS: atorvastatin 40 mg Tablet PO (22:13)
[2022-08-30 22:14] LABS: Troponin 5 6HR 3751 ng/L (0-15); Troponin 5 6HR Delta 1322 ng/L (0-12)
[2022-08-30 22:17] LABS: Glucose Point of Care 371 mg/dL (70-110)
[2022-08-31] VITALS (117 sets, daily range): BP systolic 81–126; BP diastolic 47–84; PULSE 91–120; RESP 15–35; TEMP 36.8–37.7; O2SAT 85–99
[2022-08-31] MEDS: sodium chloride 0.9% 1,000 ML 100 ML IV (01:44)
[2022-08-31 03:35] LABS: Basophils # 0.1 10^3/uL (0.0-0.1); Basophils % 0.6 %; Eosinophils # 0.2 10^3/uL (0.0-0.8); Eosinophils % 1.6 %; Hematocrit 38.3 % (42.0-52.0); Hemoglobin 13.1 g/dL (11.7-16.6); Lymphocytes % 9.4 %; Mean Corpuscular HGB Conc 34.2 g/dL (30.0-36.0); Mean Corpuscular Hemoglobin 29.2 pg (28.0-34.0); Mean Corpuscular Volume 85.5 fl (80-94); Mean Platelet Volume 9.8 fL (7.4-10.4); Monocytes # 0.9 10^3/uL (0.2-0.9); Monocytes % 8.3 %; Neutrophils % 79.6 %; Nucleated Red Blood Cells % 0 %; Platelet Count 247 10^3/cmm (130-400); Red Blood Count 4.48 10^6/uL (4.1-5.3); Red Cell Distribution Width 13.2 % (12.1-15.1); White Blood Count 11.1 10^3/uL (4.0-10.0)
[2022-08-31 03:53] LABS: Anion Gap 13.5 (5-19); Blood Urea Nitrogen 20 mg/dL (8-23); Calcium 9.1 mg/dL (8.5-10.5); Carbon Dioxide 25 mmol/L (22-29); Chloride 97 mmol/L (98-107); Glomerular Filtration Rate 68.3 mL/min (90-130); Glucose 202 mg/dL (65-115); Osmolality Calculated 282 mOsm/kg (285-295); Potassium 3.5 mmol/L (3.5-5.1); Sodium 132 mmol/L (136-145)
[2022-08-31 06:45] LABS: Glucose Point of Care 299 mg/dL (70-110)
[2022-08-31] MEDS: aspirin 81 mg EC Tablet PO (07:53)
[2022-08-31] MEDS: clopidogrel 75 mg Tablet PO (07:53)
[2022-08-31] MEDS: insulin lispro 100 unit/1 mL SUBCUT ×4 (07:54→21:32)
--- NOTE | 2022-08-31 08:03 | P.PN_ITS ---
Subjective Subjective: Patient had presented late with ST elevation [place]. He underwent coronary angiogram that showed totally occluded, nondominant small sized mid RCA. Balloon angioplasty was performed that restored some flow. However size of the artery was very small and patient was symptom-free. Decision was made to medically treat it. Sort of chest discomfort overnight. Resolved with Nitropaste. Vitals/I&O/Wt Last Vital Signs Temp 99.0 F 08/31/22 07:14 Pulse 109 H 08/31/22 07:14 Resp 20 H 08/31/22 07:14 BP 93/68 08/31/22 07:14 Pulse Ox 99 08/31/22 07:14 O2 Del Method Nasal Cannula 08/31/22 07:14 08/30/22 08/31/22 08/31/22 22:59 06:59 14:59 Intake Total 315 / 315 1425 / 1740 1000 / 1000 Output Total 850 / 850 425 / 1275 Balance -535 / -535 1000 / 465 1000 / 1000 Weight last 48 hrs Weight 230 lb Physical Exam Narrative: GENERAL: Patient is alert, awake and oriented x3. [] NECK: No jugular vein distension. [] HEENT: No cyanosis. No icterus. No pallor. [] HEART: Regular S1 and S2. No murmur, rub or gallop. [] LUNGS: Clear to auscultate bilaterally. [] CENTRAL NERVOUS SYSTEM: Grossly nonfocal. [] EXTREMITIES: Lower extremities with no edema] Data 08/31/22 02:55 08/31/22 02:55 A&P Assessment and plan (1) ST elevation (STEMI) myocardial infarction: Qualifiers: Involved coronary artery: unspecified coronary artery Qualified Cod e(s): I21.3 - ST elevation (STEMI) myocardial infarction of unspecified site (2) Diabetes: (3) Hypertension: (4) Hypothyroid: Plan Patient had totally occluded small sized mid RCA. Balloon angioplasty was performed that restored some flow. However given patient does not have significant symptoms and it is a late presentation of ST elevation [place], we decided not to put a stent as artery size was very small. Continue aspirin and plavix for atleast 1 year We will resume anticoagulation and continue till tomorrow He is chest pain free. Rhythm is stable. Initiating metoprolol Medicine team consulted for diabetes and medical management. Appreciate recs ECHO pending Attestations Medical Necessity Statement*: Care expected to cross 2 midnights. Patient had late presentation of ST elevation [place]. Balloon angioplasty of totally occluded RCA performed. However given small size of vessel, late presentation and no symptoms stenting was not performed. Patient will be kept in hospital for 1 more night Coding Level of Care Code Acute Code for Chg Fwd Diagnoses ST elevation (STEMI) myocardial infarction I21.3 Involved coronary artery: unspecified coronary artery Diabetes E11.9 Hypertension I10 Hypothyroid E03.9
--- NOTE | 2022-08-31 08:06 | PC.PHAR ---
pt states he takes care of his own medications-pt states he hasnt taken his levothyroxine 100mcg daily,zocor 20mg hs and amlodipine 5mg qam in 2 weeks-pt states he is suppose to be on [id number] 25mg daily (ext shows filled 01/15/22 90d/s)-glipizide 5mg take 2.5mg daily (filled 01/11/22 30d/s) and metformin 1000mg bid (filled 01/09/22 30d/s)pt states not taken in months-states the pharmacy hasnt been filling them for him-
[2022-08-31] MEDS: metoprolol tartrate 25 mg Tablet 12.5 MG PO ×2 (08:51→20:17)
[2022-08-31] MEDS: enoxaparin 100 mg/mL Syringe SUBCUT ×2 (08:52→20:18)
[2022-08-31 11:10] LABS: Glucose Point of Care 448 mg/dL (70-110)
--- NOTE | 2022-08-31 14:35 | PM.PN ---
Subjective Subjective: t max 99.8F overnight, no new compalints, chest pain is better today. Hba1 at 11. receved 10 U lantus overnight, sliding scale changed to high dose. CMp with normal anion gap. Vitals/I&O/Wt Last Vital Signs Temp 98.3 F 08/31/22 11:24 Pulse 98 08/31/22 11:24 Resp 20 H 08/31/22 11:24 BP 100/64 08/31/22 11:24 Pulse Ox 92 08/31/22 11:24 O2 Del Method Nasal Cannula 08/31/22 07:14 08/30/22 08/31/22 08/31/22 22:59 06:59 14:59 Intake Total 315 / 315 1425 / 1740 1480 / 1480 Output Total 850 / 850 425 / 1275 250 / 250 Balance -535 / -535 1000 / 465 1230 / 1230 Weight last 48 hrs Weight 104.326 kg Physical Exam Narrative: General: No acute distress, AO x3 HEENT: PERRLA, pupils bilaterally equal and reactive, pallors not present, trach in place Chest: Normal vesicular breath sounds, no added sounds, equal good air entry bilaterally CVS: S1-S2 regular, no murmurs, no tachycardia, no gallops, no rubs Abdomen: Soft, nontender, no organomegaly, bowel sounds present Neuro: No focal deficits, no facial deformity, AO x3, power 5/5 in all limbs Data 08/31/22 02:55 08/31/22 02:55 A&P Assessment and plan (1) ST elevation (STEMI) myocardial infarction: Management per cardiology Currently on aspirin Plavix status post intervention Qualifiers: Involved coronary artery: unspecified coronary artery Qualified Code(s): I21.3 - ST elevation (STEMI) myocardial infarction of unspecified site (2) Diabetes: Diabetes mellitus with uncontrolled hyperglycemia Hba1c 11 currently on high dose sliding scale start lantus 10 U at bedtime Anticipate discharge on po metformin and LAntus wih follow up with PCP in 2-3 weeks likely deranged A1c due to non compliance (3) Hypertension: currently well controlled (4) Hypothyroid: TSH within range Continue levothyroxine 100mg daily Attestations Medical Necessity Statement*: per admitting Coding Level of Care Code Acute Code for Chg Fwd Diagnoses ST elevation (STEMI) myocardial infarction I21.3 Involved coronary artery: unspecified coronary artery Diabetes E11.9 Hypertension I10 Hypothyroid E03.9
[2022-08-31 17:06] LABS: Glucose Point of Care 370 mg/dL (70-110)
[2022-08-31 17:19] LABS: Specific Gravity, Urine 1.015 (1.005-1.030); Urine Appearance Clear (CLEAR); Urine Color Straw (Yellow); pH Urine 5 (5-7)
[2022-08-31 17:20] LABS: Add Urine Culture? No; Add Urine Microscopic? YES; Bacteria Urine TRACE /hpf; Bilirubin Urine Neg (Negative); Blood Urine 2+ (Negative); Glucose Urine UA 4+ (Normal); Ketones Urine Negative (Negative); Leukocyte Esterase Urine Negative (Negative); Nitrate Urine Negative (Negative); Protein Urine Trace (Negative); RBC Urine 0-4 /hpf (0-2); Urobilinogen Urine Norm (Negative); WBC Urine RARE /hpf (0-5)
[2022-08-31 18:34] LABS: Adenovirus Not Detected (NOT DETECT); Chlamydia Pneumoniae Not Detected (NOT DETECT); Coronavirus 229E,HKU1,NL63,OC4 Not Detected (NOT DETECT); Human Metapneumovirus Not Detected (NOT DETECT); Human Rhinovirus/Enterovirus Not Detected (NOT DETECT); Influenza A Not Detected (NOT DETECT); Influenza A H1 Not Detected (NOT DETECT); Influenza A H1-2009 Not Detected (NOT DETECT); Influenza A H3 Not Detected (NOT DETECT); Influenza B Not Detected (NOT DETECT); Mycoplasma Pneumoniae Not Detected (NOT DETECT); Parainfluenza Virus Type 1 Not Detected (NOT DETECT); Parainfluenza Virus Type 2 Not Detected (NOT DETECT); Parainfluenza Virus Type 3 Not Detected (NOT DETECT); Parainfluenza Virus Type 4 Not Detected (NOT DETECT); Respiratory Syncytial Virus A Not Detected (NOT DETECT); Respiratory Syncytial Virus B Not Detected (NOT DETECT); SARS-COV-2 Not Detected (NOT DETECT)
[2022-08-31] MEDS: atorvastatin 40 mg Tablet PO (20:17)
[2022-08-31 21:08] LABS: Glucose Point of Care 293 mg/dL (70-110)
[2022-08-31] MEDS: insulin glargine 100 units/1 mL 10 UNIT SUBCUT ×2 (21:32)
[2022-09-01] VITALS (49 sets, daily range): BP systolic 102–126; BP diastolic 70–86; PULSE 90–107; RESP 16–31; TEMP 36.6–37.3; O2SAT 88–96
[2022-09-01 06:35] LABS: Glucose Point of Care 219 mg/dL (70-110)
[2022-09-01] MEDS: enoxaparin 100 mg/mL Syringe SUBCUT (07:58)
[2022-09-01] MEDS: insulin lispro 100 unit/1 mL SUBCUT ×2 (07:58→11:59)
[2022-09-01] MEDS: clopidogrel 75 mg Tablet PO (08:00)
[2022-09-01] MEDS: metoprolol tartrate 25 mg Tablet 12.5 MG PO (08:00)
[2022-09-01] MEDS: aspirin 81 mg EC Tablet PO (08:00)
[2022-09-01] MEDS: levothyroxine 100 mcg Tablet PO (08:00)
[2022-09-01 09:29] LABS: Basophils # 0.1 10^3/uL (0.0-0.1); Basophils % 0.6 %; Eosinophils # 0.3 10^3/uL (0.0-0.8); Eosinophils % 3.4 %; Hematocrit 39.6 % (42.0-52.0); Lymphocytes # 0.8 10^3/uL (0.8-4.8); Lymphocytes % 10.4 %; Mean Corpuscular HGB Conc 32.8 g/dL (30.0-36.0); Mean Corpuscular Volume 88.2 fl (80-94); Mean Platelet Volume 9.7 fL (7.4-10.4); Monocytes # 0.5 10^3/uL (0.2-0.9); Monocytes % 6.5 %; Neutrophils # 6.26 10^3/uL (1.8-7.7); Neutrophils % 78.5 %; Nucleated Red Blood Cells % 0 %; Platelet Count 252 10^3/cmm (130-400); Red Blood Count 4.49 10^6/uL (4.1-5.3); Red Cell Distribution Width 13.2 % (12.1-15.1)
[2022-09-01] MEDS: metoprolol tartrate 25 mg Tablet PO (09:34)
[2022-09-01 09:48] LABS: Anion Gap 13.9 (5-19); Blood Urea Nitrogen 17 mg/dL (8-23); Calcium 8.6 mg/dL (8.5-10.5); Carbon Dioxide 23 mmol/L (22-29); Chloride 98 mmol/L (98-107); Creatinine Clr Calc Pharmacy 95.0338; Glomerular Filtration Rate 76.2 mL/min (90-130); Glucose 371 mg/dL (65-115); Osmolality Calculated 289 mOsm/kg (285-295); Potassium 3.9 mmol/L (3.5-5.1); Sodium 131 mmol/L (136-145)
--- NOTE | 2022-09-01 10:52 | PM.DCS ---
Discharge Providers Date of Admission: 08/30/22 16:10 Date of Discharge: September 01, 2022 Attending Provider at Admission: Kel Torres M.D Attending Provider at Discharge: Kel Torres M.D Consults: Dr Tan Primary Care Provider: Maeve Farias MD Diagnoses at Discharge Discharge Diagnosis (1) ST elevation (STEMI) myocardial infarction: Status: Inactive Qualifiers: Involved coronary artery: unspecified coronary artery Qualified Code(s): I21.3 - ST elevation (STEMI) myocardial infarction of unspecified site (2) Diabetes: Status: Acute (3) Hypertension: Status: Acute (4) Hypothyroid: Status: Acute Reason for Visit Reason for Visit: stemi Brief History: 61 year old male with past medical history of laryngeal cancer and no prior significant disease of CAD was brought to hospital with indigestion and chest pain on and off for atleast 12 hours? He called EMS as chest pain/ indigestion was not resolving.? EMS similar EKG showed ST elevation in inferior leads.? Cardiac Electrode Cleaner was emergently activated and patient brought to the [facility]de [facility]er Hospital Course Hospital Course Patient had angiogram showing totally occluded non dominant RCA. Flow was restored with balloon angioplasty but given small size of the artery we did not put a stent. Patient was treated with anticoagulation. He remained chest pain free. ECHO showed normal LV systolic function. Medicine team was consulted for medical management and controlled the diabetes. Patient was discharged home in a stable condition. Physical Exam Narrative: GENERAL: Patient is alert, awake and oriented x3. [] NECK: No jugular vein distension. [] HEENT: No cyanosis. No icterus. No pallor. [] HEART: Regular S1 and S2. No murmur, rub or gallop. [] LUNGS: Clear to auscultate bilaterally. [] CENTRAL NERVOUS SYSTEM: Grossly nonfocal. 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 echo complete* [id number] Urgent Ultrasound 08/30/22 15:10 Completed Radiology Impressions Chest X-Ray 08/30/22 14:06 IMPRESSION: 1. No acute cardiopulmonary process. 2. There is a tracheostomy tube in place with the tip at the level of the sternoclavicular joints. 3. Incidental/nonacute findings are listed in the report. Laboratory Results WBC 8.0 10^3/uL (4.0-10.0) 09/01/22 09:21 RBC 4.49 10^6/uL (4.1-5.3) 09/01/22 09:21 Hgb 13.0 g/dL (11.7-16.6) 09/01/22 09:21 Hct 39.6 % (42.0-52.0) L 09/01/22 09:21 MCV 88.2 fl (80-94) 09/01/22 09:21 MCH 29.0 pg (28.0-34.0) 09/01/22 09:21 MCHC 32.8 g/dL (30.0-36.0) 09/01/22 09:21 RDW 13.2 % (12.1-15.1) 09/01/22 09:21 Plt Count 252 10^3/cmm (130-400) 09/01/22 09:21 MPV 9.7 fL (7.4-10.4) 09/01/22 09:21 Neut % (Auto) 78.5 % 09/01/22 09:21 Lymph % (Auto) 10.4 % 09/01/22 09:21 [place] % (Auto) 6.5 % 09/01/22 09:21 Eos % (Auto) 3.4 % 09/01/22 09:21 Baso % (Auto) 0.6 % 09/01/22 09:21 Neut # (Auto) 6.26 10^3/uL (1.8-7.7) 09/01/22 09:21 Lymph # (Auto) 0.8 10^3/uL (0.8-4.8) 09/01/22 09:21 [place] # (Auto) 0.5 10^3/uL (0.2-0.9) 09/01/22 09:21 Eos # (Auto) 0.3 10^3/uL (0.0-0.8) 09/01/22 09:21 Baso # (Auto) 0.1 10^3/uL (0.0-0.1) 09/01/22 09:21 Nucleated RBC % (auto) 0 % 09/01/22 09:21 Nucleated RBCs # 0.0 /100WBC 09/01/22 09:21 PT 12.90 SECONDS (12.1-14.9) 08/30/22 14:20 INR 0.94 (0.8-1.2) 08/30/22 14:20 APTT 29.0 SECONDS (23.9-36.7) 08/30/22 14:20 Sodium 131 mmol/L (136-145) L 09/01/22 09:21 Potassium 3.9 mmol/L (3.5-5.1) 09/01/22 09:21 Chloride 98 mmol/L (98-107) 09/01/22 09:21 Carbon Dioxide 23 mmol/L (22-29) 09/01/22 09:21 Anion Gap 13.9 (5-19) 09/01/22 09:21 BUN 17 mg/dL (8-23) 09/01/22 09:21 Creatinine 1.0 mg/dL (0.7-1.2) 09/01/22 09:21 GFR Calculation 76.2 mL/min (90-130) L 09/01/22 09:21 Glucose 371 mg/dL (65-115) H 09/01/22 09:21 POC Glucose 219 mg/dL (70-110) H 09/01/22 06:14 Estimat Average Glucose 286 08/30/22 14:20 Hemoglobin A1c 11.6 % (4.0-6.0) H 08/30/22 14:20 Calculated Osmolality 289 mOsm/kg (285-295) 09/01/22 09:21 Calcium 8.6 mg/dL (8.5-10.5) 09/01/22 09:21 Total Bilirubin 1.1 mg/dL (0.15-1.2) 08/30/22 14:20 AST 85 U/L (0-40) H 08/30/22 14:20 ALT 38 U/L (0-41) 08/30/22 14:20 Alkaline Phosphatase 117 U/L (40-130) 08/30/22 14:20 Troponin T Baseline 2429 ng/L (0-15) H* 08/30/22 14:20 Troponin T 120 Minute 2195 ng/L (0-15) H 08/30/22 16:31 Delta Troponin T -234 ABS# (0-10) L 08/30/22 16:31 Troponin T Hi Sens 6Hr 3751 ng/L (0-15) H 08/30/22 21:36 Troponin T Hi Sens 6Hr Delta 1322 ng/L (0-12) H* 08/30/22 21:36 NT-Pro-B Natriuret Pep 1533 pg/mL (0-125) H 08/30/22 14:20 Total Protein 7.3 g/dL (6.6-8.7) 08/30/22 14:20 Albumin 4.0 g/dL (3.5-5.2) 08/30/22 14:20 Globulin 3.3 g/dL (1.3-4.6) 08/30/22 14:20 Triglycerides 120 mg/dL (0-150) 08/30/22 16:31 Cholesterol 166 mg/dL (0-200) 08/30/22 16:31 LDL Cholesterol, Calc 101 mg/dL (50-129) 08/30/22 16:31 HDL Cholesterol 41 mg/dL (60-100) L 08/30/22 16:31 LDL/HDL Ratio 2.46 RATIO (0.00-3.22) 08/30/22 16:31 Cholesterol/HDL Ratio 4.05 mg/dL (1.0-5.00) 08/30/22 16:31 TSH 2.75 uIU/mL (0.27-4.20) 08/30/22 16:31 Urine Color Straw (Yellow) 08/31/22 Unknown Urine Appearance Clear (CLEAR) 08/31/22 Unknown Urine pH 5 (5-7) 08/31/22 Unknown Ur Specific [place] 1.015 (1.005-1.030) 08/31/22 Unknown Urine Protein Trace (Negative) 08/31/22 Unknown Urine Glucose (UA) 4+ (Normal) H 08/31/22 Unknown Urine Ketones Negative (Negative) 08/31/22 Unknown Urine Blood 2+ (Negative) H 08/31/22 Unknown Urine Nitrate Negative (Negative) 08/31/22 Unknown Urine Bilirubin Neg (Negative) 08/31/22 Unknown Urine Urobilinogen Norm mg/dL (Negative) 08/31/22 Unknown Ur Leukocyte Esterase Negative (Negative) 08/31/22 Unknown Urine RBC 0-4 /hpf (0-2) H 08/31/22 Unknown Urine WBC Rare /hpf (0-5) 08/31/22 Unknown Ur Squamous Epith Cells None /hpf (0-5) 08/31/22 Unknown Amorphous Sediment Not Reportable 08/31/22 Unknown Urine Bacteria Trace /hpf (NONE) 08/31/22 Unknown Nasal Influ A H1 2009 PCR Not detected (NOT DETECT) 08/31/22 15:15 Adenovirus (PCR) Not detected (NOT DETECT) 08/31/22 15:15 C. pneumoniae DNA (PCR) Not detected (NOT DETECT) 08/31/22 15:15 Coronavirus 229E (PCR) Not detected (NOT DETECT) 08/31/22 15:15 Human Metapneumovir PCR Not detected (NOT DETECT) 08/31/22 15:15 Influenza A (H1) PCR Not detected (NOT DETECT) 08/31/22 15:15 Influenza A (H3) PCR Not detected (NOT DETECT) 08/31/22 15:15 Influenza Type A (PCR) Not detected (NOT DETECT) 08/31/22 15:15 Influenza Type B (PCR) Not detected (NOT DETECT) 08/31/22 15:15 M. pneumoniae (PCR) Not detected (NOT DETECT) 08/31/22 15:15 Parainfluenza 1 (PCR) Not detected (NOT DETECT) 08/31/22 15:15 Parainfluenza 2 (PCR) Not detected (NOT DETECT) 08/31/22 15:15 Parainfluenza 3 (PCR) Not detected (NOT DETECT) 08/31/22 15:15 Parainfluenza 4 (PCR) Not detected (NOT DETECT) 08/31/22 15:15 RSV Type A (PCR) Not detected (NOT DETECT) 08/31/22 15:15 RSV Type B (PCR) Not detected (NOT DETECT) 08/31/22 15:15 Entero/Rhino (PCR) Not detected (NOT DETECT) 08/31/22 15:15 SARS-CoV-2 (PCR) Not detected (NOT DETECT) 08/31/22 15:15 Vitals Last Vital Signs Temp 97.8 F 09/01/22 07:32 Pulse 95 09/01/22 09:35 Resp 23 H 09/01/22 07:32 BP 108/77 09/01/22 09:35 Pulse Ox 91 09/01/22 07:32 O2 Del Method Room Air 09/01/22 07:32 Discharge Plan Discharge Patient Disposition: Home Condition: Stable Prescriptions: New Lantus Solostar U-100 Insulin 100 unit/mL (3 mL) insulin pen 25 unit SUBCUT QPM 30 Days Qty: 7.5 1RF metformin 500 mg tablet 500 mg PO BID 30 Days Qty: 60 1RF atorvastatin 40 mg Tablet 40 mg PO BEDTIME Qty: 90 3RF clopidogrel 75 mg Tablet 75 mg PO DAILY Qty: 90 3RF aspirin 81 mg Tablet,Delayed Release (Dr/Ec) 81 mg PO DAILY Qty: 90 3RF metoprolol tartrate 25 mg Tablet 25 mg PO BID@0900,2100 Qty: 120 3RF Continued levothyroxine 100 mcg tablet 100 mcg PO DAILY Qty: 90 3RF omega-3 fatty acids 1,000 mg Capsule 1,000 mg PO DAILY calcium carbonate 500 mg calcium (1,250 mg) Tablet 500 mg PO DAILY albuterol sulfate 90 mcg/actuation HFA aerosol inhaler 2 puff INHALATION Q6H PRN (Reason: Shortness Of Breath) Vitamin D3 25 mcg (1,000 unit) Tablet 25 mcg PO DAILY Discontinued amlodipine 5 mg tablet 5 mg PO QAM simvastatin 20 mg tablet 20 mg PO BEDTIME No Action (DME) insulin syr/ndl U100 half madalyn 0.5mL 30 gauge x 15/64 syringe See Rx Instructions .Route Qty: 100 0RF Rx Instructions: As directed Discharge Orders: Discharge Order (Routine); Ordered 09/01/22 Ordered By: Kel Torres Referrals: Maeve Farias MD [Primary Care Provider] - (Please call Andie Mckeon for an follow-up with Dr. Farias in 4 to 7 days. ) Kel Torres M.D [Physician] - (Your Dr. Torres follow up appointment will be scheduled while you are at your Amanda Childs appointment. Thank you.) Amanda Childs FNP [Nurse Practitioner] - 09/10/22 2:45 pm (Please follow-up with Amanda Childs on September 10 at 2:45P.M. If you have any questions or need to reschedule. Please call ) Discharge Diet: Cardiac and Diabetic Discharge Activity: Increase activity as tolerated Patient Instructions: Metoprolol (By mouth) (Lopressor, Toprol XL), Aspirin (By mouth), Metformin (By mouth), Atorvastatin (By mouth) (Lipitor), Clopidogrel (By mouth) (Plavix), Insulin Glargine (By injection) (Lantus, Lantus SoloStar, [place], Semglee), Hypertension, Heart Attack (DC), Hypothyroidism (DC), Type 2 Diabetes in Adults: New Diagnosis (DC), DASH Eating Plan (DC), Coronary Angioplasty (DC), Opioid Safety, Post Angiogram Home Care Instructions, Post Heart Attack Stoplight Discharge Attestations Time Spent in Discharge Care*: greater than 30 min Quality Metrics Clinical Quality Measures [ Acute Myocardial Infaction { Clinical Trial Participant: Yes; Contraindication to aspirin: None; Aspirin prescribed; Contraindication to statin: None; Statin prescribed; Contraindication to PCI: None; PCI performed;}] Coding Level of Care Code Acute Code for [facility] Fwd Diagnoses ST elevation (STEMI) myocardial infarction I21.3 Involved coronary artery: unspecified coronary artery Diabetes E11.9 Hypertension I10 Hypothyroid E03.9
[2022-09-01 11:00] LABS: Glucose Point of Care 301 mg/dL (70-110)
--- NOTE | 2022-09-01 14:53 | PM.PN ---
Subjective Subjective: Patient seen and examined prior to discharge today. He feels well overall and is eager to go home. Discussed with him the issue of his uncontrolled blood sugars and A1c of 11. He is willing to resume his medications, wishes to keep metformin in his regimen and agreeable to starting once daily Lantus. Medications: Reviewed: Yes Vitals/I&O/Wt Last Vital Signs Temp 97.8 F 09/01/22 07:32 Pulse 95 09/01/22 12:45 Resp 23 H 09/01/22 07:32 BP 108/77 09/01/22 12:45 Pulse Ox 91 09/01/22 07:32 O2 Del Method Room Air 09/01/22 07:32 08/31/22 09/01/22 09/01/22 22:59 06:59 14:59 Intake Total 100 / 1580 360 / 360 Output Total 600 / 850 0 / 850 Balance -600 / 630 100 / 730 360 / 360 Physical Exam Narrative: General: No acute distress, AO x3 HEENT: PERRLA, pupils bilaterally equal and reactive, pallors not present, trach in place Chest: Normal vesicular breath sounds, no added sounds, equal good air entry bilaterally CVS: S1-S2 regular, no murmurs, no tachycardia, no gallops, no rubs Abdomen: Soft, nontender, no organomegaly, bowel sounds present Neuro: No focal deficits, no facial deformity, AO x3, power 5/5 in all limbs Data 09/01/22 09:21 09/01/22 09:21 A&P Assessment and plan (1) ST elevation (STEMI) myocardial infarction: Management per cardiology Currently on aspirin Plavix status post intervention Qualifiers: Involved coronary artery: unspecified coronary artery Qualified Code(s): I21.3 - ST elevation (STEMI) myocardial infarction of unspecified site (2) Diabetes: Diabetes mellitus with uncontrolled hyperglycemia Hba1c 11 Uncontrolled diabetes likely related to noncompliance with medication. Patient has not taken any medications in at least 1 month, he suspects it may have been longer. currently on high dose sliding scale + lantus 10 U at bedtime Daily insulin requirements in the hospital around 40 units over 24 hours. Discussed with the patient that given his A1c of 11, would ideally prefer to start him on a basal + Premeal bolus regimen of insulin, however he states that he is quite hopeful that once he is discharged from the hospital he will be able to bring down his A1c with lifestyle modification. Insists that he has been able to bring his A1c down from 15-5.2 in the past by following a strict dietary regimen. I am not certain he will be compliant with the 3 times a day insulin regimen. Currently he is agreeable to resuming metformin 500 mg twice a day and starting Lantus 25 units at bedtime. He has a glucometer at home, instructed to monitor for any signs of hypoglycemia. Encouraged to keep a fingerstick chart over the next week and to bring this to his primary care provider appointment in 1 week to modify insulin dose as needed. (3) Hypertension: currently well controlled (4) Hypothyroid: TSH within range Continue levothyroxine 100mg daily Attestations Medical Necessity Statement*: Per admitting. No contraindications for discharge from medicine standpoint. No signs of DKA/HHS Coding Level of Care Code Acute Code for Chg Fwd Diagnoses ST elevation (STEMI) myocardial infarction I21.3 Involved coronary artery: unspecified coronary artery Diabetes E11.9 Hypertension I10 Hypothyroid E03.9
== END 2022-09-01 12:48 | disposition home or self-care (01) | DRG 251 ==
LOC: ER 14:11 → CCL 14:13 → CSU 15:48
PROVIDERS: Student in an Organized Health Care Education/Training Program; Admitting Provider Internal Medicine; Emergency Provider Emergency Medicine; PCP Family Medicine; Visit Provider Internal Medicine
PROC: 02703ZZ Dilation of Coronary Artery, One Artery, Percutaneous Approach (ICD-10-PCS; principal; 2022-08-30 14:00)
PROC: 02703ZZ Dilation of Coronary Artery, One Artery, Percutaneous Approach (ICD-10-PCS; 2022-08-30 14:00)
DX: I21.11 ST elevation (STEMI) myocardial infarction involving right coronary artery (principal); E11.65 Type 2 diabetes mellitus with hyperglycemia; I25.10 Atherosclerotic heart disease of native coronary artery without angina pectoris; Z91.128 Patient's intentional underdosing of medication regimen for other reason; I10 Essential (primary) hypertension; E03.9 Hypothyroidism, unspecified; Z79.51 Long term (current) use of inhaled steroids; C32.9 Malignant neoplasm of larynx, unspecified; E78.5 Hyperlipidemia, unspecified; E78.00 Pure hypercholesterolemia, unspecified
CPT/HCPCS: 36415; 36416; 71045; 80048; 80053; 80061; 81001; 82962; 83036; 83880; 84443; 84484; 85025; 85347; 85610; 85730; 87486; 87581; 87633; 92920; 93005; 93306; 93458; 96365; 96372; 96374; 99152; 99153; 99285; C1725; C1769; C1887; C1894; G0378; J0461; J1644; J1650; J1815; J2250; J2370; J3010; J3490; J7030; J7050; Q9967

== ENCOUNTER → 2022-09-10 14:41 | Outpatient (BNVA) | payer MEDICARE, MEDICAID, SELFPAY | PROVIDERS: PCP Family Medicine; Visit Provider Nurse Practitioner Family | DX: I25.10 Atherosclerotic heart disease of native coronary artery without angina pectoris (principal); I10 Essential (primary) hypertension; I25.2 Old myocardial infarction | CPT/HCPCS: 99214 ==

== ENCOUNTER → 2022-11-19 13:32 | Outpatient (BNVA) | payer MEDICARE, MEDICAID, SELFPAY | PROVIDERS: PCP Family Medicine; Visit Provider Internal Medicine | DX: I25.10 Atherosclerotic heart disease of native coronary artery without angina pectoris (principal); E11.9 Type 2 diabetes mellitus without complications; I10 Essential (primary) hypertension | CPT/HCPCS: 99214 ==

== ENCOUNTER → 2023-07-02 11:25 | Outpatient (BNVA) | payer MEDICARE, MEDICAID, SELFPAY | PROVIDERS: PCP Family Medicine; Visit Provider Nurse Practitioner Family | DX: I10 Essential (primary) hypertension (principal); I25.10 Atherosclerotic heart disease of native coronary artery without angina pectoris; I45.10 Unspecified right bundle-branch block; Z87.891 Personal history of nicotine dependence | CPT/HCPCS: 93005; 99214 ==

== ENCOUNTER → 2023-07-14 10:28 | Outpatient (BNVA) | payer MEDICARE, MEDICAID, SELFPAY | PROVIDERS: PCP Family Medicine; Visit Provider Nurse Practitioner Family | DX: I10 Essential (primary) hypertension (principal); I25.10 Atherosclerotic heart disease of native coronary artery without angina pectoris; F17.200 Nicotine dependence, unspecified, uncomplicated | CPT/HCPCS: 99214 ==

== ENCOUNTER → 2023-11-26 15:04 | Outpatient (BNVA) | payer MEDICARE, SELFPAY | PROVIDERS: PCP Family Medicine; Visit Provider Internal Medicine | DX: I25.10 Atherosclerotic heart disease of native coronary artery without angina pectoris (principal); E11.9 Type 2 diabetes mellitus without complications; Z79.4 Long term (current) use of insulin; I10 Essential (primary) hypertension; F17.210 Nicotine dependence, cigarettes, uncomplicated | CPT/HCPCS: 99214 ==

== ENCOUNTER → 2024-07-28 14:43 | Outpatient (BNVA) | payer MEDICARE, SELFPAY | PROVIDERS: PCP Family Medicine; Visit Provider Internal Medicine | DX: I25.10 Atherosclerotic heart disease of native coronary artery without angina pectoris (principal); I10 Essential (primary) hypertension; E11.9 Type 2 diabetes mellitus without complications; Z79.4 Long term (current) use of insulin; Z79.84 Long term (current) use of oral hypoglycemic drugs; Z87.891 Personal history of nicotine dependence; Z79.02 Long term (current) use of antithrombotics/antiplatelets; Z79.82 Long term (current) use of aspirin; I25.2 Old myocardial infarction | CPT/HCPCS: 99214 ==